=== PATIENT | female | born 1990 | race Caucasian/White ===

== ENCOUNTER 2017-02-25 23:06 | Emergency (ER) | payer SELFPAY ==
[2017-02-25 23:08] VITALS: BP 123/77; PULSE 94; RESP 16; TEMP 98.5; O2SAT 100
== END 2017-02-26 01:47 | disposition left against medical advice (07) ==
LOC: NED 23:06
DX: R69 Illness, unspecified (principal); Z53.21 Procedure and treatment not carried out due to patient leaving prior to being seen by health care provider
CPT/HCPCS: 99281